=== PATIENT | female | born 1995 | race Native Hawaiian/Other Pacific Islander ===

== ENCOUNTER 2017-12-02 02:43 | Emergency (ER) | payer OTHER ==
[~2017-12-02 02:43] MED LIST: MMW SS
[2017-12-02 03:06] VITALS: BP 139/92; PULSE 92; RESP 16; TEMP 97.6; O2SAT 100
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
== END 2017-12-02 05:47 | disposition home or self-care (01) ==
LOC: NEPD 02:43
DX: S39.012A Strain of muscle, fascia and tendon of lower back, initial encounter (principal); S09.90XA Unspecified injury of head, initial encounter; M79.604 Pain in right leg; H92.01 Otalgia, right ear; M54.2 Cervicalgia; V43.53XA Car driver injured in collision with pick-up truck in traffic accident, initial encounter
CPT/HCPCS: 70450; 72100; 72125; 73564; 73590; 84703